=== PATIENT | female | born 2005 | race African-American/Black ===

== ENCOUNTER 2024-03-27 20:15 | Emergency (ER) | payer OTHER, SELFPAY ==
[2024-03-27 20:17] VITALS: BP 107/51; PULSE 77; RESP 16; TEMP 36.5; O2SAT 99
[2024-03-27 21:59] VITALS: BP 147/66; PULSE 94; RESP 18; O2SAT 100
[2024-03-27 22:23] LABS: BEDSIDEPREGUCG Positive (Negative)
[2024-03-27 22:53] LABS: Basophils Percent Auto 0.2 % (0.2-1.2); Eosinophils Percent Auto 0.2 % (0-4.4); Hematocrit 29.7 % (37.0-47.0); Immature Granulocyte Absolute 0.04 K/mm3 (0.00-0.031); Immature Granulocyte Percent A 0.5 % (0-0.5); Lymphocytes Absolute Auto 1.47 K/mm3 (0.9-3.2); Lymphocytes Percent Auto 16.6 % (18.3-44.2); Mean Corpuscular HGB Conc 33.7 g/dl (32-36); Mean Corpuscular Hemoglobin 29.2 pg (26-34); Mean Corpuscular Volume 86.6 fl (80-100); Monocytes Absolute Auto 0.7 K/mm3 (0.1-0.6); Monocytes Percent Auto 8.1 % (2.6-8.5); Neutrophils Absolute Auto 6.6 K/mm3 (1.3-6.7); Neutrophils Percent Auto 74.4 % (45.5-73.1); Platelet Count Result 253 k/mm3 (150-375); Red Blood Count 3.43 M/mm3 (4.2-5.4); Red Cell Distribution Width 13.6 % (11.5-14.5); White Blood Count 8.9 K/mm3 (4.5-10.0)
[2024-03-27 23:01] LABS: Add Urine Microscopic? YES; Appearance Urine Cloudy (Clear); Bacteria Urine 2+ /hpf; Bilirubin Urine Negative (Negative); Blood Urine Negative (Negative); Color Urine Yellow (Yellow); Glucose Urine UA Negative (Negative); Ketones Urine 4+ mg/dL (Negative); Leukocyte Esterase Ur 1+ LEU/UL (Negative); Nitrate Urine Negative (Negative); Protein Urine Trace mg/dL (Negative); RBC Urine 0-2 /hpf (0-2); Specific Grav Ur 1.025 (1.001-1.035); Squamous Epithelial Cell Urine Moderate /hpf (Few); pH Urine 6.5 (5.0-9.0)
[2024-03-27 23:03] LABS: Alanine Aminotransferase 8 U/L (6-35); Albumin Level 3.9 g/dL (3.5-5.1); Alkaline Phosphatase 53 U/L (38-126); Anion Gap 7 mmol/L (4-12); Aspartate Amino Transferase 20 U/L (14-36); Bilirubin,Total 0.8 mg/dL (0.2-1.3); Blood Urea Nitrogen 8 mg/dL (7-17); Carbon Dioxide 18 mmol/L (22-30); Chloride 108 mmol/L (98-107); Estimated CRCL calculation 151 ml/min; Estimated Glomerular Filt Rate > 60; Glucose 74 mg/dL (65-110); Lipase 26 U/L (23-300); Potassium 3.4 mmol/L (3.4-5.0); Sodium 133 mmol/L (137-145)
[2024-03-27] MEDS: ACETAMINOPHEN 500 MG TABLET 1000 MG PO (23:39)
[2024-03-27] MEDS: SODIUM CHLORIDE 0.9% IV 1,000 ML 999 ML IV CONT (23:41)
--- NOTE | 2024-03-27 23:56 | ED_ITS ---
HPI - Abdominal Pain General Chief Complaint: Abdominal Pain Stated Complaint: lower abdominal pain, 16 weeks Time Seen by Provider: 03/27/24 23:13 Source: patient Mode of arrival: ambulatory Limitations: no limitations History of Present Illness HPI narrative: This is a 18 year old female that presents to the ER for lower abdominal pain. Presents via EMS from [facility]. She is currently 16 weeks . Reports she was experiencing right lower abdominal pain which was sharp in nature. Symptoms have resolved. Her OB is Dr. Frank. Had had routine care. Denies vaginal bleeding. Related Data Allergies Allergy/AdvReac Type Severity Reaction Status Date / Time No Known Allergies Allergy Verified 03/27/24 20:23 Review of Systems 2 Review of Systems: CONSTITUTIONAL: Denies fever GASTROINTESTINAL: Reports abdominal pain. Denies nausea, vomiting, or diarrhea. GENITOURINARY: Denies dysuria or hematuria. All systems reviewed & are unremarkable except as noted in HPI and below PMFSH Family History Family History Grandparent Breast cancer Diabetes mellitus Heart disease Hypertension Social History Social History Smoking status: Current every day smoker Tobacco type: e-cigarettes/vaping Alcohol intake: current Substance use: current Substance use type: marijuana Lack of Transportation: YES Lack of Food: Sometimes True Current Housing: I Have Housing Concerned About Future Housing: No Difficulty Paying Gas/Electric Bills: No Difficulty Paying for Meds: No Currently Unemployed: YES Education: High School Diploma/GED Difficulty w/ Childcare or Family Care: No Living arrangements: alone Occupation/Education: unemployed Gender identity (if verbalized by the patient): Female Exam 2 Narrative: GENERAL: Well-appearing, well-nourished, and in no acute distress. HEAD: Normocephalic, atraumatic. EYES: EOMI. CHEST: Clear to auscultation. No respiratory distress. No wheezes rales or rhonchi HEART: Regular rate and rhythm. No murmur heard. Normal peripheral pulses. ABDOMEN: Soft, nontender, normal active bowel sounds. EXTREMITIES: Normal range of motion. No edema. SKIN: Warm, dry, no rash. NEURO: No focal deficits. Alert and oriented x3. PSYCH: Normal mood and affect Procedures Other Procedure Procedure 1: Other Procedure: bedside ultrasound shows activity and positive cardiac motion Course Course Emergency Course: patient updated on her workup and agrees with plan of care Vital Signs Vital signs: Vital Signs Temperature 97.7 F 03/27/24 20:17 Pulse Rate 77 03/27/24 20:17 Respiratory Rate 16 03/27/24 20:17 Blood Pressure 107/51 L 03/27/24 20:17 Pulse Oximetry 99 03/27/24 20:17 Oxygen Delivery Room Air 03/27/24 20:17 Temperature 97.7 F 03/27/24 20:17 Pulse Rate 94 03/27/24 21:59 Respiratory Rate 18 03/27/24 21:59 Blood Pressure 147/66 H 03/27/24 21:59 Pulse Oximetry 100 03/27/24 21:59 Oxygen Delivery Room Air 03/27/24 20:17 MDM - Abdominal Pain MDM Narrative Medical decision making narrative: patient presents to the emergency department for lower abdominal discomfort. Currently 16 weeks . She has had routine care. No vaginal bleeding. She is afebrile and nontoxic appearing. Cbc without leukocytosis. Metabolic panel without concerning findings. Urine with possible evidence of infection. This will be sent for culture. Patient given 1st dose of antibiotics IV in the ER. Does also show some dehydration. Patient hydrated with a L of IV fluids in the ED. bedside ultrasound shows positive cardiac motion and activity. Patient's pain was relieved after Tylenol. She was instructed to have continued follow-up with her OB. She was given warnings to return to the ER Differential Diagnosis Differential diagnosis: Likely constipation and other (round ligament pain, UTI, dehydration) Lab Data Attestation: I reviewed the patient's lab results. 03/27/24 22:34 03/27/24 22:34 Labs: Lab Results 03/27/24 03/27/24 Range/Units 22:22 22:34 WBC 8.9 (4.5-10.0) K/mm3 RBC 3.43 L (4.2-5.4) M/mm3 Hgb 10.0 L (12.0-15.0) g/dL Hct 29.7 L (37.0-47.0) % MCV 86.6 (80-100) fl MCH 29.2 (26-34) pg MCHC 33.7 (32-36) g/dl RDW 13.6 (11.5-14.5) % Plt Count 253 (150-375) k/mm3 MPV 11.0 H (7.4-10.4) fl Immature Gran % (Auto) 0.5 (0-0.5) % Neut % (Auto) 74.4 H (45.5-73.1) % Lymph % (Auto) 16.6 L (18.3-44.2) % [place] % (Auto) 8.1 (2.6-8.5) % Eos % (Auto) 0.2 (0-4.4) % Baso % (Auto) 0.2 (0.2-1.2) % Lymph # (Auto) 1.47 (0.9-3.2) K/mm3 [place] # (Auto) 0.7 H (0.1-0.6) K/mm3 Eos # (Auto) 0.0 (0-0.3) K/mm3 Baso # (Auto) 0.0 (0.0-0.1) K/mm3 Abs Immat Gran (auto) 0.04 H (0.00-0.031) K/mm3 Absolute Neuts (auto) 6.6 (1.3-6.7) K/mm3 Absolute Nucleated RBC 0.000 (0.0-0.012) K/mm3 Nucleated RBC % 0.0 (0.0-0.2) % Sodium 133 L (137-145) mmol/L Potassium 3.4 (3.4-5.0) mmol/L Chloride 108 H (98-107) mmol/L Carbon Dioxide 18 L (22-30) mmol/L Anion Gap 7 (4-12) mmol/L BUN 8 (7-17) mg/dL Creatinine 0.40 L (0.7-1.0) mg/dL Estim Creat Clear Calc 151 ml/min Estimated GFR > 60 (59 - ) Glucose 74 (65-110) mg/dL Calcium 9.0 (8.4-10.2) mg/dL Total Bilirubin 0.8 (0.2-1.3) mg/dL AST 20 (14-36) U/L ALT 8 (6-35) U/L Alkaline Phosphatase 53 (38-126) U/L Total Protein 7.0 (6.3-8.2) g/dL Albumin 3.9 (3.5-5.1) g/dL Lipase 26 (23-300) U/L Urine Color Yellow (Yellow) Urine Appearance Cloudy H (Clear) Urine pH 6.5 (5.0-9.0) Ur Specific [place] 1.025 (1.001-1.035) Urine Protein Trace (Negative) mg/dL Urine Glucose (UA) Negative (Negative) mg/dL Urine Ketones 4+ H (Negative) mg/dL Ur Blood (Man) Negative (Negative) Urine Nitrate Negative (Negative) Urine Bilirubin Negative (Negative) Urine Urobilinogen 1.0 (<2.0) mg/dL Leukocyte Esterase Rfl 1+ H (Negative) JOSE RAMON/UL Urine RBC 0-2 (0-2) /hpf Urine WBC 11-20 H (0-3) /hpf Ur Squamous Epith Cells Moderate (Few) /hpf Urine Bacteria 2+ H /hpf Urine Casts 3-5 POC Urine HCG, Qual Positive (Negative) Critical Care Time Critical Care Time Critical Care Time: No Discharge Plan Discharge Clinical Impression: Acute UTI, Dehydration Patient Disposition: Home, Self-Care Condition: Improved Instructions: Antibiotic Form, Abdominal Pain in (ED), Urinary Tract Infection in (ED) Additional Instructions: Return to the ER if you experience fever, abdominal pain with nausea and vomiting, you are unable to keep down liquids or solids, pain or burning with urination, blood in the urine or any other symptoms that are concerning to you Remain well hydrated. Take oral antibiotics as prescribed. Tylenol as needed for discomfort Follow up with your OB Patient Language: Czech Prescriptions: New cephalexin 500 mg capsule 500 mg PO Q12H 5 Days Qty: 10 0RF No Action ondansetron HCl 4 mg tablet 4 mg PO Q6H PRN (Reason: nausea and vomiting) Qty: 30 1RF Follow-up/Referrals: UNKNOWN,DOCTOR [Primary Care Provider] - Earnest Frank MD [Physician] -
[2024-03-28 00:29] VITALS: BP 119/61; PULSE 84; RESP 17; O2SAT 98
== END 2024-03-28 00:34 | disposition home or self-care (01) ==
PROVIDERS: Emergency Medicine; Emergency Provider Physician Assistant
DX: O23.42 Unspecified infection of urinary tract in pregnancy, second trimester (principal); N39.0 Urinary tract infection, site not specified; O99.282 Endocrine, nutritional and metabolic diseases complicating pregnancy, second trimester; E86.0 Dehydration; O99.332 Smoking (tobacco) complicating pregnancy, second trimester; F17.290 Nicotine dependence, other tobacco product, uncomplicated; Z3A.16 16 weeks gestation of pregnancy
CPT/HCPCS: 36415; 80053; 81001; 81025; 83690; 85025; 87086; 96365; 99284; A9270; J0696; J7030

== ENCOUNTER 2024-07-28 11:31 | Outpatient (RCR) | payer OTHER, SELFPAY ==
[2024-07-28 12:33] VITALS: BP 115/55; PULSE 100
== END 2024-09-04 08:26 | disposition home or self-care (01) ==
LOC: ANHOBOP 11:31
PROVIDERS: PCP Student in an Organized Health Care Education/Training Program; Visit Provider Student in an Organized Health Care Education/Training Program
DX: O36.8130 Decreased fetal movements, third trimester, not applicable or unspecified (principal); Z3A.00 Weeks of gestation of pregnancy not specified
CPT/HCPCS: 59025

== ENCOUNTER 2024-09-05 16:48 | Inpatient (IN) | payer OTHER, SELFPAY ==
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
--- OUTSIDE RECORDS SUMMARY | 2024-09-05 16:53 | XMS_ITS | Data Portability ---
Author Organization [facility] [employer] , [facility] Address [address] [place] [address] Care Team Providers Care Accreditation Specialist Name Role Phone [facility] Medical Lab Assistant Assessment No assessment recorded. Plan of Treatment Reminders Order Date Submit Date Provider Last Modified By Organization Details Last Modified Time Details Appointments None recorded. Lab test, urine 2021 022 [id number] [facility], [address] [place], [address], 10:13:01 beta-HCG, quantitati ve, serum or plasma 2021 022 [id number] [employer] [facility], [address] [place], [address], 14:38:51 Referral None recorded. Procedures None recorded. Surgeries None recorded. Imaging None recorded. Medication Orders None recorded. Patient TargetsNo targets recorded. Patient InstructionsNo instructions recorded. Reason for Referral None Reported. Results Created Date Observation Date Name Description Value Unit Range Abnormal Flag Note LastModifiedBy Organization Detail LastModifiedTime 10/22/1910/21/2021 pregn belkys test, urine HCG negati ve Not Available [facility] [address] [place], [address], 10/16/2021 07:14:59 Result Notes None recorded. Problems No Known Problems Procedures Surgical History Date Name Laterality Status Provider Name and Address Organization Details Recorded Time 2 Depo Provera Injection completed Nichelle Le [facility] IV 05/08/2021 12:33:38 1 Date of Last Pap Smear completed Elodia Pearl [facility] IV 07/22/2021 01:23:29 Imaging Results None recorded. Procedure Notes None recorded. Medical Equipment None Reported. Allergies No known drug allergies Medications Name Sig Start Date Stop Date Status Note LastModified by Organization Details LastModified Time terconazo le 0.4 % vaginal cream insert 1 applicat orful by vaginal route once daily at bedtime for 7 days 08/06 completed terconaz ole 0.4 % Vaginal Cream RxNorm: 970208 Allow Substitu tion: True Refill Denied: No Edited by: Bertha Hernandez ) on 08/07/19 Stopped by: lisa(Bertha Echols ) on 08/07/19 21 Not Available Not Available Not Available ferrous sulfate 325 mg (65 mg iron) tablet take 1 tablet (325 mg) PO qd 01/07 completed ferrous sulfate 325 mg (65 mg iron) oral tablet RxNorm: [id number] Allow Substitu tion: True Refill Denied: No Edited by: Bertha Hernandez ) on 01/08/20 Stopped by: Bertha Hernandez ) on 01/08/20 21 Not Available Not Available Not Available docusate sodium 100 mg capsule 10/21 completed Not Available Not Available Not Available ibuprofen 600 mg tablet 10/21 completed Not Available Not Available Not Available medroxypr ogesteron e 150 mg/mL intramusc ular suspensio n INJECT 1 MILLILIT ER (150 MG) BY INTRAMUS CULAR ROUTE ONCE EVERY 3 MONTHS active Not Available Not Available No t Available azithromy anam 1 gram oral packet take 1 packet (1,000 mg) by oral route dissolve d in 2 ounces of water as a single dose. 08/06 completed azithrom ycin 1 gram oral Packet RxNorm: [id number] Allow Substitu tion: True Refill Denied: No Edited by: lisa(Bertha Echols ) on 08/07/19 Stopped by: lisa(Bertha Echols ) on 08/07/19 Not Available Not Available Not Available medroxypr ogesteron e 150 mg/mL intramusc ular syringe inject 1 millilit er (150 mg) by intramus cular route every 3 months 04/24 completed medroxyP ROGESTER one 150 mg/mL intramus cular Syringe RxNorm: [id number] Allow Substitu tion: False Refill Denied: No Refill DateOccu rred: 05/22/19 Edited by: Mago Moser ) on 04/24/19 Stopped by: Mago Moser ) on 04/24/19 Not Available Not Available Not Available 01/07 completed Allow Substitu tion: False Refill Denied: No Refill DateOccu rred: 05/09/19 Edited by: lisa(Bertha Echols ) on 01/08/20 Stopped by: lisa(Bertha Echols ) on 01/08/20 Not Available Not Available Not Available Vitals Date Recorded Body height Body mass index (BMI) Body mass index (BMI) Percentile per age and sex Body weight Body temperature Systolic And Diastolic Provider Name and Address Organization Details Last Updated DateTime 2 160.02 cm 28.6 kg/m2 92 % 60902.5 3 g 98 [degF] 118/70 mm[Hg] Abril Donahue [employer] [facility] 2 10:06:41 Social History Question Answer Notes LastModified by Organizat ion Details LastModified Time Tobacco Smoking Status Never Smoker Abril Donahue martha, [employer] [facility] 10/21/2021 10:04:24 Are You Blind Or Do You Have Difficulty Seeing? No [email or web address] Information not available 10/21/2021 Are You Deaf Or Do You Have Serious Difficulty Hearing? No [email or web address] Information not available 10/21/2021 Which Illicit Or Recreational Drugs Have You Used? Nictotine [email or web address] Information not available 10/21/2021 How Many Children Do You Have? 1 Information not available 10/21/2021 What Is Your Relationship Status? Single [email or web address] Information not available 10/21/2021 Are You Sexually Active? Yes [email or web address] Information not available 10/21/2021 Have You Used IV Drugs? No [email or web address] Information not available 10/21/2021 Sex: Unknown Functional Status Question Answer Note LastModified by Organizat ion Details LastModified Time Do you use any illicit or recreational drugs? Yes [email or web address] Information not available 10/21/2021 Do you or have you ever used any other forms of tobacco or nicotine? No [email or web address] Information not available 11/13/2021 What is your level of alcohol consumption? None [email or web address] Information not available 10/21/2021 What is your exercise level? None Information not available 10/21/2021 Mental Status None recorded. Family History Relationship Description Onset Age of this Age Resolved Age Notes LastModified by Organization Details LastModified Time Maternal Grandmother Malignant tumor of breast [email or web address] Not available 07/11 01:23:15 Medical History Condition Response Other Cancer N High Blood Pressure N Colon Cancer N Cytomegalovirus N Hyperthyroidism N MRSA N Blood Transfusion N Herpes (HSV) N Breast Cancer N Lung Cancer N Depression N Hypothyroidism N Incontinence N Panic Attacks N Neurological Disorder N Deep Vein Thrombosis N Anxiety Disorder N Autoimmune disease N Arthritis N Shingles N Tuberculosis/Positive PPD N Polycystic Ovarian Syndrome N Cervical Cancer N Hematuria N Chlamydia N Varicosities N Stroke N Seasonal allergies N Crohn's Disease N Alzheimer's/Dementia N COPD/Emphysema N Endometriosis N HPV/Genital Warts N IBS (Irritable Bowel Syndrome) N History of Abnormal Pap N High Cholesterol N Liver Disease N Fibromyalgia N Kidney Infection N Ulcer N Kidney Disease N HIV N Gallbladder disease N Sickle Cell Disease/Trait N Von Willebrand disease N ADD/ADHD N Eating Disorder N Anemia N Diabetes Mellitus (non-insulin dependent ) N Ovarian Problems N Multiple Sclerosis N Gonorrhea N Frequent Urinary Tract infections N Osteopenia N Headaches/migraines N GERD (reflux) N Ovarian Cancer N Diabetes (insulin dependent) N Seizures/Epilepsy N Fibroids N Heart Attack N Asthma N Lupus N Endometrial Cancer N Rubella N Blood Clotting Disorder N Bipolar Disorder N Diabetes Mellitus (during ) N Ulcerative Colitis N Hepatitis N Heart Disease N Pulmonary Embolism N RPR N Chicken Pox N Osteoporosis N Gynecological History Statement/Question Response Date of last HPV 05/09/2020 Date of LMP 12/11/2021 HPV Vaccine Y Date of Last Pap Smear 05/09/2020 Current Control Method None Age at Menarche 9 Obstetrics History GPAL:G 1 P 1 0 0 1 Type Value Full Term 1 Living 1 Total 1 Past Encounters Encounter ID Performer Location Encounter Start Date Encounter Closed Date Diagnosis/Indication Diagnosis SNOMED-CT Code Diagnosis ICD10 Code Diagnosis Note [id number] Anamarialyn Olea CNM [facility] h [address] [place] [address] 05/08/2021 12:16:27 05/16/2021 13:00:21 [id number] Anamarialyn Olea CNM [facility] h [address] [place] [address] 10/21/2021 09:54:32 10/21/2021 10:29:36 detection examination [id number] Z32.00 Urine result reviewed. Pt sure she got about 1 wk ago. F/u pending result for quant. 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 Anamaria Olea CNM [address] [facility], [place], [address], [facility] [employer] 10/21/2021 10:14:26 OBGyn Episode Ob Episode Information Episode Created Date Number of Fetuses Patient Bloodtype Patient rh Status Prepregnancy Weight lbs Domestic Partner Domestic Partner Phone Father Name Professional Poker Player Status 06/27/19 22 1 CLOSED Fetus Data First Name Last Name Admitted to NICU Weight (g) Sex Living Outcome Pediatric Complications Fetus ID Race Codes Race Delivery Type 3288.54 2 M [id number] Vishnu Calculation Initial Vishnu Date Initial Exam Date Initial Exam Provider Initial Ultrasound Date Last Menstrual Period Date Ultra Sound Weeks Gestation 0 Eighteen To Twenty Week Vishnu Update Ultra Sound Date Fundal Height At Umbil Quickening Date Ultra Sound Latest Weeks Gestation Final Vishnu Confirmed By Final Vishnu Confirmed Date Final Vishnu Date Ultra Sound Latest Days Gestation 0 0 Menstrual History Last Menstrual Date Menses Monthly On Bcp Conception Prior Menses Frequency Hcg Plus Date Menarche Onset Age Delivery Information Delivery Date Delivery Type Labor Anesthesia Weeks Gestation Incision Type Labor Labor Length Hrs Delivered By Post Complications Tubal Sterilization Discharge Date Comments 1 39.1 false Discharge Information Feeding Method Contraceptive Method Maternal HG B and HCT Levels
[2024-09-05 17:07] VITALS: BMI 27.3
--- NOTE | 2024-09-05 17:08 | LDADM ---
This patient, Estiven William, was admitted to Labor/Delivery/Recovery 106 on 09/05/24 at 16:48. Plans for labor, pain management and were discussed with patient. Patient/family oriented to hospital policies and general routines including ID bracelet, bed and alarms, visiting hours, pain management, procedures, bathroom and other care routines, personal items, smoking policy, room service/diet and guest tray routines, security routines, and visiting hours. Patient/Family are encouraged to report perceived risks to care and to ask questions if they do not understand what they are told or what they should do. See OBIX for further documentation.
[2024-09-05 17:29] LABS: Basophils Percent Auto 0.2 % (0.2-1.2); Eosinophils Absolute Auto 0.1 K/mm3 (0-0.3); Eosinophils Percent Auto 1.5 % (0-4.4); Hematocrit 31.9 % (37.0-47.0); Hemoglobin 10.1 g/dL (12.0-15.0); Immature Granulocyte Absolute 0.08 K/mm3 (0.00-0.031); Immature Granulocyte Percent A 1.4 % (0-0.5); Lymphocytes Absolute Auto 1.05 K/mm3 (0.9-3.2); Lymphocytes Percent Auto 17.7 % (18.3-44.2); Mean Corpuscular HGB Conc 31.7 g/dl (32-36); Mean Corpuscular Hemoglobin 27.7 pg (26-34); Mean Corpuscular Volume 87.6 fl (80-100); Mean Platelet Volume 9.5 fl (7.4-10.4); Monocytes Absolute Auto 0.4 K/mm3 (0.1-0.6); Monocytes Percent Auto 7.4 % (2.6-8.5); Neutrophils Absolute Auto 4.3 K/mm3 (1.3-6.7); Neutrophils Percent Auto 71.8 % (45.5-73.1); Platelet Count Result 218 k/mm3 (150-375); Red Blood Count 3.64 M/mm3 (4.2-5.4); Red Cell Distribution Width 18.4 % (11.5-14.5); White Blood Count 5.9 K/mm3 (4.5-10.0)
[2024-09-05] MEDS: DINOPROSTONE 10 MG VAG INSERT VAGINAL (17:35)
[2024-09-05 18:12] VITALS: BP 118/63; PULSE 101; RESP 20; TEMP 36.5
[2024-09-05 18:26] LABS: HIV 1/2 Ab P24 Ag Result Negative (Negative)
[2024-09-05 18:34] LABS: Syphilis IgG/IgM Antibody Negative (Negative)
--- NOTE | 2024-09-05 22:28 | WPDANESEPP ---
Anes - Eval Pre Procedure Procedure: Labor epidural Date/Time: 09/05/24 22:28 Surgeon: Monika Preop Diagnosis: Abdominal pain with contractions Pre Op Diagnosis: IOL Patient Data Age: 19 Gender: F Height: 1.6 m Weight: 70 kg Last Vital Signs Temp 97.7 F 09/05/24 18:12 Pulse 101 H 09/05/24 18:12 Resp 20 09/05/24 18:12 BP 118/63 09/05/24 18:12 O2 Del Method Room Air 09/05/24 17:07 Allergies Allergy/AdvReac Type Severity Reaction Status Date / Time No Known Allergies Allergy Verified 08/28/24 14:19 Home Medications ?Medication ?Instructions ?Recorded ?Confirmed ?Type No Home Medications 08/15/24 09/05/24 History Laboratory Tests 09/05/24 17:00 WBC 5.9 K/mm3 (4.5-10.0) RBC 3.64 L M/mm3 (4.2-5.4) Hgb 10.1 L g/dL (12.0-15.0) Hct 31.9 L % (37.0-47.0) MCV 87.6 fl (80-100) MCH 27.7 pg (26-34) MCHC 31.7 L g/dl (32-36) RDW 18.4 H % (11.5-14.5) Plt Count 218 k/mm3 (150-375) MPV 9.5 fl (7.4-10.4) Immature Gran % (Auto) 1.4 H % (0-0.5) Neut % (Auto) 71.8 % (45.5-73.1) Lymph % (Auto) 17.7 L % (18.3-44.2) Bent % (Auto) 7.4 % (2.6-8.5) Eos % (Auto) 1.5 % (0-4.4) Baso % (Auto) 0.2 % (0.2-1.2) Lymph # (Auto) 1.05 K/mm3 (0.9-3.2) Bent # (Auto) 0.4 K/mm3 (0.1-0.6) Eos # (Auto) 0.1 K/mm3 (0-0.3) Baso # (Auto) 0.0 K/mm3 (0.0-0.1) Abs Immat Gran (auto) 0.08 H K/mm3 (0.00-0.031) Absolute Neuts (auto) 4.3 K/mm3 (1.3-6.7) Absolute Nucleated RBC 0.000 K/mm3 (0.0-0.012) Nucleated RBC % 0.0 % (0.0-0.2) Syphilis IgG/IgM Ab Negative (Negative) HIV 1&2 Ab/P24 Ag 4thGn Negative (Negative) Blood Type O Positive Antibody Screen Negative : gestational age HCG: positive Patient hx anesthesia problems: none Family hx anesthesia problems: none Results Review: All pre-operative results and documents have been reviewed as part of the pre-operative evaluation. [facility] Past Medical History Medical History (Updated 09/05/24 @ 22:30 by Humberto Noland Jr., CRNA) Overweight (BMI 25.0-29.9) Marijuana use and not yet delivered Anemia affecting Family History Family History Grandparent Breast cancer Diabetes mellitus Heart disease Hypertension Social History Social History Smoking status: Former smoker Tobacco type: e-cigarettes/vaping Second hand tobacco smoke exposure: No Alcohol intake: former Substance use: current Substance use type: marijuana Other substance usage details: 1 time daily Do You Feel Safe in your Home?: Yes Lack of Transportation: No Lack of Food: Never True Current Housing: I Have Housing Concerned About Future Housing: No Difficulty Paying Gas/Electric Bills: No Difficulty Paying for Meds: No Currently Unemployed: No Education: High School Diploma/GED Difficulty w/ Childcare or Family Care: No Living arrangements: alone Occupation/Education: unemployed Gender identity (if verbalized by the patient): Female Sexual Orientation (if Verbalized by the Patient): Straight or Heterosexual Spiritual care concerns: No Exam Day of Procedure 09/05/24 22:28 Patient weight: overweight
[2024-09-05] MEDS: ACETAMINOPHEN 500 MG TABLET 1000 MG PO (23:40)
[2024-09-06] VITALS (80 sets, daily range): BP systolic 90–134; BP diastolic 43–88; PULSE 62–127; RESP 16–20; TEMP 36.5–38.2; O2SAT 85–100
[2024-09-06] MEDS: fentaNYL CITRATE INJ (*CRX) 100 MCG/2 ML VIAL 50 MCG IV PUSH (02:12)
[2024-09-06] MEDS: diphenhydrAMINE HCl INJ 50 MG/ML VIAL IV PUSH (04:00)
[2024-09-06] MEDS: LACTATED RINGERS 1,000 ML 125 ML IV CONT (05:34)
--- NOTE | 2024-09-06 08:10 | WPDHPUPDATE1 ---
History and Physical Update Update Date/Time: 09/06/24 08:10 ... - tobacco use -anemic- s/p IV iron, H/H 10.05/12 on admission History and Physical has been reviewed, including an updated exam of the patient. There are NO changes in the patient's condition. Risks, benefits, and alternatives have been discussed and questions answered. Patient agrees to proceed with procedure. A/P: admit to L&D routine admission orders Rh pos GBS neg plan for cervidil IOL continuous EFM epidural PRN
[2024-09-06] MEDS: OXYTOCIN 30 UNITS/NS 500 ML 30 UNITS/500 ML BAG 999 UNITS IV CONT (09:03)
--- NOTE | 2024-09-06 09:18 | P.PCNOB_ITS ---
OB - Vaginal Delivery Note Procedure Delivery date: 09/06/24 Delivery monitor: External FHT and External Uterine Episiotomy description: None Laceration Description: None Specimen: No Quantitative Blood Loss (ml): 150 Anesthesia type: Epidural Disposition: Floor Complications: No immediate complications Narrative: Patient pushed for a spontaneous vaginal delivery. The fetus was delivered atraumatically and placed on the maternal abdomen. The cord was clamped and cut after 1 minute of life. The cord was double clamped and cut and a segment of cord was collected for cord gases. Cord blood was collected for blood type and Coomb's testing. The placenta delivered spontaneously and was noted to be intact. The perineum was inspected and noted to be intact. The uterus was firm and good hemostasis was noted. [place] Baby Date of : 09/06/24 Time of : 09:00 Gestational Age by Date: 39 gender: Female presentation: vertex Placenta delivery description: Spontaneous Cord Vessel Description: 3 Vessels score one minute: 8 score five minutes: 9
[2024-09-06] MEDS: OXYTOCIN 30 UNITS/NS 500 ML 30 UNITS/500 ML BAG 125 UNITS IV CONT (09:36)
[2024-09-06] MEDS: IBUPROFEN 600 MG TABLET PO ×2 (10:50→22:35)
[2024-09-06] MEDS: ONDANSETRON INJ 4 MG/2 ML VIAL IV PUSH (11:58)
--- NOTE | 2024-09-06 12:31 | OBPPTRN ---
Patient transferred to post room #292 via wheelchair. Support person present. Oriented to unit, room, information board, rooming in, admission packet and security measures. Patient verbalizes understanding.
[2024-09-06] MEDS: ACETAMINOPHEN 325 MG TABLET 650 MG PO ×2 (13:40→22:35)
--- NOTE | 2024-09-06 16:30 | PC.NURSE ---
Introductions were made, then consulted with patient to assess needs related to . Mother led the conversation with her?plans to feed?her and the?experience so far. Encouraged understanding of the benefits of skin to skin, stimulating with massage touch, changing positions to encourage wakefulness, how to watch for early feeding cues, responsive feeding, feeding on demand (aiming for 8-12 times in 24 hours, about every 2-3 hours), milk production, building/maintaining a milk supply, duration of feeding, signs of adequate intake/output and how to record on the feeding sheet. Mother works well with her with encouragement and education. Reviewed positioning and ear, shoulder, hip alignment, supporting the breast to facilitate a deep latch, asymmetrical latch (off-center), leading with the chin with a big, open, wide gape and body close to mother. Infant latched optimally to the [right] breast in [cross cradle] position. Education given to the mother of how to visualize the suckling (with good rocking jaw motion), swallows (dropping of the lower jaw) and how to listen for drinking at the breast (the ka sound). Infant was [able] to maintain latch without pain to mother protecting the nipple with optimal positioning and latching. Reviewed comfort measures of healing with a warm, wet washcloth to rinse breast, then leave open to air-dry, good handwashing when or touching the breast/nipples to prevent infection. Mother voiced understanding of skin to skin, stimulating with massage touch, responsive feedings, hand expressed colostrum, talking to to encourage if it has been 2 -2.5 hours since the start of the last , to call if does not latch, or if there is discomfort with . Resources used for education were facilitated with the [visual educational handouts/ tool/mom and baby guide], Inpatient/outpatient resources provided with business card, feeding sheet, name written on the communication board, and the mom/baby guide. Parents voiced understanding of information, demonstrated learning and will call if there is a request for assistance. Reported to the Primary RN.
[2024-09-07 03:35] VITALS: BP 102/57; PULSE 56; RESP 18; TEMP 36.3; O2SAT 100
[2024-09-07 05:23] LABS: Hematocrit 36.2 % (37.0-47.0); Hemoglobin 11.3 g/dL (12.0-15.0)
[2024-09-07 07:40] VITALS: BP 116/53; PULSE 61; RESP 16; TEMP 36.6; O2SAT 100
--- NOTE | 2024-09-07 09:26 | PM.OBDSVD ---
DS: Admitting Diagnosis Discharge Date 09/07/24 Admitting Diagnosis intrauterine at term DS: Discharge Diagnosis Discharge Diagnosis (1) Normal vaginal delivery: Code(s): O80 - Encounter for full-term uncomplicated delivery Status: Acute OB - DS: Summary OB Procedures : None OB Procedures Intrapartum: Spontaneous Vag Delivery OB Procedures: : None Peripartum Data Laceration Description: None Episiotomy description: None Status at Discharge Functional status at discharge: independent ambulation Overall status at discharge: patient is back to baseline Time Spent with Patient Time attestation: Total time spent providing and/or coordinating discharge services: Time spent: Less than 30 minutes Exam Const: General: comfortable and no acute distress Resp: Effort & Inspection: normal respiratory effort Auscultation: clear to auscultation bilaterally Cardio: Rate: regular rate GI: GI Palp: Yes Soft to palpation Auscultation: normal bowel sounds Other: Fundus firm below umbilicus Psych: Appearance: grossly normal Mental Status: mental status grossly normal Affect: normal affect DS: Data Data Completed and Pending Labs on day of discharge: Labs from last 24 hours 09/07/24 03:18 Hgb 11.3 L Hct 36.2 L Discharge Plan Discharge Discharging Clinician: Earnest Frank Patient Disposition: Home Activity: as tolerated and pelvic rest Diet: regular Patient Instructions: Antibiotic Form, Vaginal Delivery (DC) Patient Language: Maltese Stand Alone Forms: General Discharge Information Follow-up/Referrals: Earnest Frank MD [Physician] - 4 Weeks Discharge Medications: New acetaminophen 500 mg tablet 500 mg PO Q6H PRN (Reason: pain) Qty: 30 0RF ibuprofen 600 mg tablet 600 mg PO Q6H PRN (Reason: pain) Qty: 30 0RF No Action No Home Medications Date of admission: 09/05/24 16:48 Primary Care Provider: PHYSICIAN,SHAREPOINT DEVELOPER Admitting Provider: Earnest Frank Attending physician on admission: Earnest Frank Condition: Stable
--- NOTE | 2024-09-07 11:53 | PC.NURSE ---
1130 Consulted with mother concerning needs and she shared her ability to independently latch optimally without pain. Per mother she did use a hand pump one time last night and fed baby 10 mls, she does have her own breast pump at home if she needs it. Mother inquired about alcohol consumption with and CLC read to mother from the Pocket Guide for Management, page 89, The [place] states that the safest option is to avoid alcohol, but notes that there is no known harm in consuming up to 1 standard alcoholic drink per day, especially when not nursing the baby again for at least 2 hours. Mother also inquired about smoking, CLC read to mother from the same Pocket Guide, page 87, Cutting down on the number of cigarettes a day may quickly increase the production of milk. In all cases, babies should be protected from second hand smoke and smoking should be discouraged. Mother is feeding appropriately for growth of and understands stimulating infant to eat if needed. Infant has had appropriate feedings in the last 24 hours meets the outcomes for weight, output, blood sugar and jaundice at this time. Reinforced understanding of milk production, transition of milk, signs of adequate intake, transition of stool, prevention/relief of engorgement, plugged ducts, mastitis, responsive watching for feeding cues, the different methods of stimulating to breastfeed 1-3 hours after the start of the last feeding, community resources, and when to call a provider using the resource of the feeding sheet along with the mom and baby guide. Mother voiced understanding of the information shared, is confident to continue effectively her infant at home, when to call for assistance, denies any additional assistance or education at this time. Reported to the Primary RN. [address] [facility] form completed and faxed to the [place] office #[phone] and placed on mother chart.
== END 2024-09-07 13:33 | disposition home or self-care (01) | DRG 560 ==
LOC: ANHLDR 16:51 → ANHOB2 09-06 12:36
PROVIDERS: Admitting Provider Student in an Organized Health Care Education/Training Program; Visit Provider Student in an Organized Health Care Education/Training Program
DX: O99.334 Smoking (tobacco) complicating childbirth (principal); F17.210 Nicotine dependence, cigarettes, uncomplicated; O99.02 Anemia complicating childbirth; Z3A.39 39 weeks gestation of pregnancy; Z37.0 Single live birth
CPT/HCPCS: 36415; 85014; 85018; 85025; 86593; 86703; 86850; 86900; 86901; A9270; G0432; J1200; J2405; J2590; J2795; J3010; J7120

== ENCOUNTER 2024-09-25 14:06 | Outpatient (CLI) | payer OTHER, SELFPAY ==
--- OUTSIDE RECORDS SUMMARY | 2024-09-25 15:18 | XMS_ITS | Clinical Summary ---
Author Organization [facility] Address [facility] [place] [address] Care Team Providers Care Research Program Manager Name Role Phone Palmira Stoner MD Primary Care Provider [phone]- [phone] Allergies No known active allergies Medications ferrous sulfate, 65 mg elemental, 325 (65 FE) MG tablet Take 1 tablet by mouth daily. 10/07/2020 Active vitamin 27-1 MG tablet Take 1 tablet by mouth daily. Active ibuprofen 600 MG tablet Take 1 tablet (600 mg total) by mouth every 6 (six) hours as needed for Pain. 30 tablet 12/18/2020 Active Active Problems Problem Noted Date Diagnosed Date Vaginal delivery ([facility]) 12/16/2020 Normal course ([facility]) 12/16/2020 Encounter for elective induction of labor ([facility]) 12/15/2020 Family History Medical History Relation Comments Breast Cancer Maternal Grandmother Hypertension Maternal Grandmother Relation Status Comments Maternal Grandmother Alive Mother Alive Social History Tobacco Use Types Packs/Day Years Used Date Smoking Tobacco: Never Smokeless Tobacco: Never Alcohol Use Standard Drinks/Week Comments Not Currently 0 (1 standard drink = 0.6 oz pur e alcohol) Depression Answer Date Recor ded Last EPDS Total Score 1 12/17/2020 Last EPDS Self Harm Result Hardly ever 12/17 Comments No Sex and Gender Information Value Date Recorded Sex Assigned at Not on file Legal Sex Female 6:04 PM CDT Gender Identity Not on file Sexual Orientation Not on file Last Filed Vital Signs Vital Sign Reading Time Taken Comments Blood Pressure 130/80 04/05/2022 12:15 AM EXERCISE INSTRUCTOR Pulse 109 04/05/2022 12:15 AM EXERCISE INSTRUCTOR Temperature 37.1 C (98.7 F) 04/05/2022 12:15 AM EXERCISE INSTRUCTOR Respiratory Rate 16 04/05/2022 12:15 AM EXERCISE INSTRUCTOR Oxygen Saturation 98% 04/05/2022 12:15 AM EXERCISE INSTRUCTOR Inhaled Oxygen Concentration - - Weight 72.6 kg (160 lb) 04/05/2022 12:15 AM EXERCISE INSTRUCTOR Height 160 cm (5' 3) 04/05/2022 12:15 AM EXERCISE INSTRUCTOR Body Mass Index 28.34 04/05/2022 12:15 AM EXERCISE INSTRUCTOR Plan of Treatment Health Maintenance Due Date Last Done Comments Cervical Cancer Screening Pa p Smear (Age 21 to 29) Every 3 Years 2003 Cervical Cancer Screening 2003 Annual Physical 2006 Chlamydia Screening Females ages 16-24 2019 Meningococcal B Vaccine (1 o f 2 - Standard) 2019 Hepatitis C 2021 DTaP, Tdap and Td Vaccines ( 3 - Tdap) 2022 10/19/2008, 12/18/2005, 06/15/2005 Hepatitis B Vaccines (1 of 3 - 19+ 3-dose series) 2022 COVID-19 Vaccine (1 - 2023-2 5 season) 2023 HPV Vaccines Completed 01/07/2016, 11/29/2014 Meningococcal Vaccine Aged Out 01/07/2016 No alice marge eligible based on patient's age to complete this topic Pneumococcal Vaccine: Pediatrics (0 to 5 Years) and At-Risk Patients (6 to 49 Years) Aged Out No longer eligible b ased on patient's age to complete this topic RSV Immunizations Under 20 Months Aged Out No longer eligible b ased on patient's age to complete this topic Insurance [employer] Advance Directives * Full Code (Latest Code Status on File) Date Activated Date Inactivated Comments 12/15/2020 8:02 PM 12/18/2020 7:36 PM Care Teams Research Program Manager Relationship Specialty Start Date End Date Palmira Stoner MD [address] [facility] [address] [place] [address] PCP - General 11/12/14
--- OUTSIDE RECORDS SUMMARY | 2024-09-25 15:18 | XMS_ITS | Encounter Summary ---
Author Organization [facility] Address [facility] [place] [address] Care Team Providers Care Fender Mechanic Name Role Phone Palmira Stoner MD Primary Care Provider [phone]- [phone] Encounter Details Date Type Department Care Team (Late st Contact Info) Description 01/04/2021 Hospital Follow-up Call [facility] [place] [address] Maria Esther Espana, RN Social History Tobacco Use Types Packs/Day Years [...] on file Sexual Orientation Not on file COVID-19 Exposure Response Date Recorded In the last month, have you been in contact with someone who was confirmed or suspected to have Coronavirus / COVID-19? No / Unsure 12/15/2020 8:23 PM CDT documented as of this encounter Functional Status * RETIRED Are you deaf or do you have serious difficulty hearing Answer Date of Assessment Author Status No 12/15/2020 8:37 PM CDT Activ e * RETIRED Are you blind or do you have serious difficulty seeing, even when wearing glasses? Answer Date of Assessment Author Status No 12/15/2020 8:37 PM CDT Activ e * Do you have serious difficulty walking or climbing stairs? Answer Date of Assessment Author Status No 12/15/2020 8:37 PM ARETHAT Vira Lindquist RN Active * Do you have difficulty dressing or bathing? Answer Date of Assessment Author Status No 12/15/2020 8:37 PM CDT Vira Lindquist RN Active * Because of a physical, mental, or emotional condition, do you have difficulty doing errands alone such as visiting a doctor's office or shopping? Answer Date of Assessment Author Status No 12/15/2020 8:37 PM ARETHAT Vira Lindquist RN Active documented as of this encounter Mental Status * Because of a physical, mental, or emotional condition, do you have serious difficulty concentrating, remembering, or making decisions? Answer Entry Date Author Status No 12/15/2020 8:37 PM ARETHAT Vira Lindquist RN Active documented in this encounter Plan of Treatment Not on file documented as of this encounter Visit Diagnoses Not on filedocumented in this encounter Care Teams Fender Mechanic Relationship Specialty Start Date End Date Palmira Stoner MD [address] [address] PCP - General 11/12/14 documented as of this encounter
--- OUTSIDE RECORDS SUMMARY | 2024-09-25 15:18 | XMS_ITS | Data Portability ---
Author Organization [facility] Address [address] [facility] [place] [address] Assessment No assessment recorded. Plan of Treatment Reminders Order Date Submit Date Provider Last Modified By Organization Details Last Modified Time Details Appointments None recorded. Lab CBC w/ auto diff 2017 018 [facility], [address] [place], [place] [address]dalia Soni, [address], [place], [address], 8 12:22:50 CMP, serum or plasma 2017 018 [facility], [address] [place], [place] [address]Mass [address]idelity Zachariah, [address], [place], [address], 8 12:22:50 TSH + free T4, serum 2017 018 [facility], [address] [place], [place] [address]Clarity Zachariah, [address], [place], [address], 8 12:22:50 celiac disease comprehens ronaldo panel, serum 2017 018 [facility], [address] [place], [place] [address], [address], [place], [address], 8 12:22:49 C reactive protein, QN, serum or plasma 2017 018 [facility], [address] [place], [place] [address]Clarity [address], [address], [place], [address], 8 10:26:53 erythrocyt e sedimentat ion rate by westergren method 2017 [facility], [address] [facility], [address], [place], [address], 8 12:22:50 Referral gastroente rologist referral 2017 DAVE Greene MD, [address] [place], [address], 8 12:35:14 Procedures None recorded. Surgeries None recorded. Imaging None recorded. Medication Orders cyprohepta dine 4 mg tablet 2017 [id number], [address] [place], [address], 8 10:18:49 erythromyc in-benzoyl peroxide 3 %-5 % topical gel 2017 018 kel[id number], [address] [place], [address], 8 16:05:24 erythromyc in-benzoyl peroxide 3 %-5 % topical gel 2017 018 [id number], [address] [place], [address], 8 10:52:27 Patient TargetsNo targets recorded. Patient Instructions Encounter Date Encounter Id Patient Instructions Last Modified By Organization Details Last Modified Time 09/14/2017 [id number] based on todays history and presentation , [...] . [email or web address] Not available 09/14/2017 11:06:46 01/04/2018 [id number] better sleep for teens: care instructions nathalie Not available 01/04/2018 10:51:12 Learning About How to Make Healthy Changes in Your Child's Diet nathalie Not available 01/04/2018 10:51:12 Considering More Physical Activity for Your Child alonsohland Not available 01/04/2018 10:51:12 learning about safer sex for teens nathalie Not available 01/04/2018 10:51:12 Reason for Referral Desktop Administrator Referral for Chronic abdominal pain Chronic abdonimal pain Referring Physician: Palmira Stoner, Pediatric Medicine, Encounter Date: 12/27/2017 Results Created Date Observation Date Name Description Value Unit Range Abnormal Flag Note LastModifiedBy Organization Detail LastModifiedTime 08/31/19 18 08/30/2017 urina lysis , dipst ick Leukocytes Negati ve Not Available In-Office Order Internal Use Only DO Not Attach Compendium DO Not Attach Compendium, Do Not Delete/merge, [id number] 08/30/2017 10:59:23 08/31/19 18 08/30/2017 urina lysis , dipst ick Nitrite negati ve Not Available In-Office Order Internal Use Only DO Not Attach Compendium DO Not Attach Compendium, Do Not Delete/merge, [id number] 08/30/2017 10:59:23 08/31/19 18 08/30/2017 urina lysis , dipst ick Urobilinogen .2 Not Available In-Of fice Order Internal Use Only DO Not Attach Compendium DO Not Attach Compendium, Do Not Delete/merge, [id number] 08/30/2017 10:59:23 08/31/19 18 08/30/2017 urina lysis , dipst ick Protein Trace Not Available In-Office Order Internal Use Only DO Not Attach Compendium DO Not Attach Compendium, Do Not Delete/merge, [id number] 08/30/2017 10:59:23 08/31/19 18 08/30/2017 urina lysis , dipst ick pH 7.0 Not Available In-Office Order Internal Use Only DO Not Attach Compendium DO Not Attach Compendium, Do Not Delete/merge, [id number] 08/30/2017 10:59:23 08/31/19 18 08/30/2017 urina lysis , dipst ick Blood Negati ve Not Available In-Office Order Internal Use Only DO Not Attach Compendium DO Not Attach Compendium, Do Not Delete/merge, [id number] 08/30/2017 10:59:23 08/31/19 18 08/30/2017 urina lysis , dipst ick Specific [place] 1.020 Not Available In-Off ice Order Internal [...] ankle No observ ation record ed. [email or web address] [facility], [place], [address], 04/05/2022 22:02:36 Result Notes None recorded. Problems Name Problem SNOMED Code Status Onset Date Resolution Date Notes Provider Name and Address Organization Details Recorded Time Chronic nonspecific abdominal pain 292322886 Active 2017 Demond Payton MD Attn: Mani hernandez,[address] , [place], [address], [facility] 8 10:30:13 Problem Notes None recorded. Medical [...] Heart rate Respiratory rate Body temperature Systolic blood pressure Diastolic blood pressure Provider Name and Address Organization Details Last Updated DateTime 8 160.02 cm 20.8 kg/m2 35705.1 1 g 80 /min 20 /min 98.2 [degF] 120 mm[Hg] 68 mm[Hg] Jae Sanchez MA [facility] 8 10:24:29 Date Recorded Body height Body mass index (BMI) Body weight Heart rate Respiratory rate Body temperature Systolic blood pressure Diastolic blood pressure Provider Name and Address Organization Details Last Updated DateTime 8 161.29 cm 21.4 kg/m2 01017.8 6 g 82 /min 20 /min 96.7 [degF] 118 mm[Hg] 68 mm[Hg] Jae Sanchez MA [facility] 8 10:16:17 Date Recorded Body height Body mass index (BMI) Body weight Heart rate Respiratory rate Body temperature Systolic blood pressure Diastolic blood pressure Provider Name and Address Organization Details Last Updated DateTime 8 161.29 cm 20.7 kg/m2 14561.4 9 g 82 /min 20 /min 98.3 [degF] 116 mm[Hg] 62 mm[Hg] Yareli Greene MA [facility] 8 11:37:58 Date Recorded Body weight Heart rate Respiratory rate Systolic blood pressure Diastolic blood pressure Provider Name and Address Organization Details Last Updated DateTime 12/27/2017 99353.7 1 g 80 /min 20 /min 110 mm[Hg] 80 mm[Hg] Palmira Stoner [facility] 8 10:03:05 Date Recorded Body weight Body mass index (BMI) Body height Heart rate Body temperature Respiratory rate Systolic blood pressure Diastolic blood pressure Provider Name and Address Organization Details Last Updated DateTime 8 65238.4 9 g 21.1 kg/m2 160.02 cm 82 /min 97.7 [degF] 22 /min 112 mm[Hg] 80 mm[Hg] Arielle Hadley [facility] 8 09:47:38 Social History None recorded. Functional Status None recorded. Mental Status None recorded. Family History Nothing Reported. Medical History No medical history recorded. Gynecological HistoryNo gynecological history recorded. Obstetrics History GPAL:G 0 P 0 0 0 0 Past Encounters Encounter ID Performer Location Encounter Start Date Encounter Closed Date Diagnosis/Indication Diagnosis SNOMED-CT Code Diagnosis ICD10 Code Diagnosis Note [id number] Palmira Stoner MD [place] [place] [address] [place] [address] 08/30/2017 10:26:16 09/06/2017 00:39:33 Chronic abdominal pain 959151051 R10.9 [id number] Palmira Stoner MD [address] [facility] [address] [place] [address] 09/14/2017 10:20:28 09/14/2017 12:39:43 Chronic abdominal pain 984525139 R10.9 based on todays history and presentati on , discussed her pain most likely is secondary to dietary habits , she is to have 3 healthy meals and when having the hunger pains eat something , to bee seen in 4 weeks and to keep a diary if the pain is so severe or daily . [id number] Palmira Stoner MD [facility] [address] [place] [address] 10/14/2017 10:12:43 10/14/2017 12:35:31 Chronic abdominal pain 390200466 R10.9 emphasised the importance of x 3 healthy meals , not dips or chips .to stop the ibuprofen it well worsen the pain , to try otc tylenol for it if sever . Celiac disease 148527872 K90.0 obtain screening labs . Acne vulgaris 70601704 L 70.0 keep face clean , no picking at lesions , use the gel as prescribed in the evening , to follow up in 30 days . [id number] Palmira Stoner MD [facility] [address] [place] [address] 10/26/2017 11:21:25 10/26/2017 14:04:17 Chronic abdominal pain 082356801 R10.9 resolving , to keep on the same healthy life style recommenda tions mainly no junk food , no Ibuprofen ,called for labs , to call back with results , to reevaluate in 2 month . Acne vulgaris 72522806 L 70.0 keep face clean , no picking at lesions , use the gel as prescribed in the evening , to follow up in 30 days , keep on control ; well help her acne . Surveillan ce of oral contraception 989638319 Z30.41 teenager has been started by planned parenting on oral contracept jordana , discussed sexual activity , importance of protection against STDs , the other methods such as Depo or implanon are better at preventing , since [facility] . [id number] Palmira Stoner MD [facility] [address] [place] [address] 12/27/2017 09:35:11 12/27/2017 11:05:56 Chronic abdominal pain 097220754 R10.9 she continues to have abdominal pain that has not resolved , as discussed to refer to GI . Unexplaine d weight loss 830167772 R63.4 She has lost 3 pounds since last visit , to start on Cyprohepta dine 4 mg at h.s and recheck in 4-6 weeks , also to refer to GI , and consider the need for evaluation for ( body image issues ) . [id number] Palmira Stoner MD [facility] [address] [place] [address] 01/04/2018 09:34:51 01/04/2018 12:31:23 Depression screening 427866677 Z13.89 Scored 6/27 on PHQ-9. Positive symptoms related to sleep/fati bentley which are most likely attributab le to poor sleep hygeine with extensive screen use up until she goes to sleep. Discussed plans to improve this with patient and mother which involve eliminatin g all screen use at least 2 hours prior to sleep. Well child visit 3220819 09 Z00.129 Discussed sleep hygeine as above. Depression screening otherwise negative Discussed safe sexual practices including regular use of condoms and minimizing the number of sexual partners in regards to preventing STD's. Completed school and pre-partic ipation physicals. Cleared for participat ion. Chronic no nspecific abdominal pain 370899487 R10.9 Pain has persisted despite starting cyprohepta dine although she has gained 4 pounds since initiation . Symptoms most likely psychosoma tic in etiology. Continue cyprohepta dineFollow up with GI. Discussed with patient and mother Diet education 68236141 Z71.3 healthy lifestyle discussed 5210 Exercises education, guidance, and counseling 772335216 Z71.82 Normal bod y mass index 95190479 Z68.52 Health Concerns Section Related Observation LastModified by Organization Detai ls LastModified Time None Recorded Concern Status LastModified by Organization Details LastModified Time None Recorded Advance Directives Directive None Recorded Payers Insurance Date Sequence Insurance Name Policy Number Policy Polanco Covered Member ID Polanco Member ID Guarantor Name 09/18/2017 1 [facility] (MEDICAID HMO) Estiven William [id number] Alena Meadows 10/14/2017 1 [place] [place] [employer] Estiven William [id number] Alena Meadows 09/12/2024 1 [facility] (MEDICAID HMO) [id number] Estiven William [id number] Alena Meadows Notes Date Note Type Note [...] regular periods , sleeps well . Palmira Herbie thomas, [facility] 09/14/2017 11:07:06 10/14/2017 text/html she continues to [...] any sexual activity . Palmira Leonardmarco a thomas [facility] 10/14/2017 10:53:14 10/26/2017 text/html since last seen [...] 4# by being more active . Palmira Herbie thomas [facility] 10/26/2017 12:09:14 12/27/2017 text/html Estiven vencesa she i s having abdominal pain agin [...] attentive to her physical apparence . Palmira thomas [place] - [facility] 12/27/2017 10:21:44 01/04/2018 text/html Patient presents with [...] pre-participation physical, she will be participating in [employer] where she runs long distance. [...] about preventing STD's Palmira Stoner TONY thomas - [facility] 01/04/2018 12:35:30 OBGyn Episode No OBEpisode recorded.
--- NOTE | 2024-09-25 15:30 | PC.NURSE ---
In- 1410 Out- 1515 Reason for visit: Decrease in milk supply & pumping questions. History: This patient Estiven William came in today 09/25/24 for decreased milk supply with pumping and pumping questions. She had a vaginal delivery with Dr Frank on 09/06/24 with no significant complications or medical history. She has a 3 year old who she reports she breastfed until he was 4 months old, and stopped feeding on her own. She uses THC. Mom reports she noticed changes in her breast during her & after delivery. She states she is able to breastfeed without pain and reports her baby appears satisfied after feedings on the breast. However, she states while using her hand pump since coming home from the hospital, the amount of milk she has been able to pump has decreased over time. She reports she is using a medela hand pump with a size 21 flange. She pumps one breast at a time for 10 min on average. Mom states in her first week she was able to pump 3-4 oz per breast, but now she is rekha to get about 1.5-3 oz total with pumping. History: Baby Rupa was 39 +2 weeks at delivery. Mom reports that Rupa has about 8-10 wet diapers in a day and 4-6 stools in a day. She reports Rupa is able to latch to the breast easily and she can hear swallowing with feedings. Observations: Mother latched to both breasts with ease independently. She latches appropriately and swallows are frequent and audible with no pain during the latch. Mom works well with infant. The took 62ml from the L breast in total and 43ml from the R breast, which is 3.5 oz. After the feeding, the appeared satisfied and was burped by mom. Moms nipples were measured at 24mm. Mom should be using a size 26-27 size flange but is currently using a 21. weight: 7lb 4oz Lowest weight: 6lb 12 oz Last weight:7lb 0oz Pre-feed weight: 8lb 5.3oz; 3781g Post-feed weight L breast: 8lb 7.5oz; 3843g Post-fed weight R breast: 8lb 9oz; 3886g Plan of Care: Mom stated she had not gotten a pump thru her insurance & would like one. A medela breast pump was provided during the appointment due to moms need for one. Instructions were given on cleaning, care, usage, that there should be no pain, pumping schedule for milk production, collection, and storage of human milk. Patient was assessed for correct placement. We tested the new correct size 27 flanges after she breastfed and she was able to pump a little over 4 oz total. She stated this was already so much more than she had been pumping at home with her handheld pump. Follow up plans: Follow up with your naval science teacher as planned. Estiven will receive a follow up call in 2-3 days from one of our team members at the hospital. If she requires further assistance she is welcome to make another outpatient appointment at the hospital.
== END 2024-09-25 14:07 | disposition home or self-care (01) ==
LOC: ANHOBOP 14:10
PROVIDERS: Visit Provider Pediatrics
DX: O92.4 Hypogalactia (principal)
CPT/HCPCS: 99212; G0463